=== PATIENT | female | born 1970 | race Caucasian/White ===

== ENCOUNTER → 2021-02-14 | Outpatient (CLI) | payer OTHER ==
[~2021-02-14] MED LIST: CITA20TA6 PO; CRESTOR5 MG PO; IBUP-1060 PO; LORA10TA68 PO; MULT-742 PO; OXYC20TA PO; PANT40TA77 PO; UPAD15TA PO
[2021-02-14 11:20] LABS: BASO % 0 % (0-3); EOS # 0.1 x10^3/uL (0.0-0.7); EOS % 1 % (0-3); HEMATOCRIT 35.3 % (36.0-47.0); HEMOGLOBIN 12.4 g/dL (12.0-15.5); LYMPH # 1.9 x10^3/uL (1.0-4.8); LYMPH % 28 % (24-48); MEAN CORPUSCULAR HEMOGLOBIN 33 pg (25-35); MEAN CORPUSCULAR HGB CONC 35 g/dL (31-37); MEAN CORPUSCULAR VOLUME 94 fL (79-100); MONO # 0.5 x10^3/uL (0.0-1.1); MONO % 7 % (0-9); NEUT # 4.4 x10^3/uL (1.8-7.7); NEUT % 63 % (31-73); PLATELET COUNT 314 x10^3/uL (140-400); RED BLOOD COUNT 3.74 x10^6/uL (3.50-5.40); RED CELL DISTRIBUTION WIDTH 13.2 % (11.5-14.5); WHITE BLOOD COUNT 6.9 x10^3/uL (4.0-11.0)
[2021-02-14 11:46] LABS: ALBUMIN 4.5 g/dL (3.4-5.0); ALBUMIN/GLOBULIN RATIO 1.9 (1.0-1.7); CALCIUM 8.8 mg/dL (8.5-10.1); CREATININE 0.9 mg/dL (0.6-1.0); GFR 66.5; POTASSIUM 3.6 mmol/L (3.5-5.1); TOTAL BILIRUBIN 0.4 mg/dL (0.2-1.0); TOTAL PROTEIN 6.9 g/dL (6.4-8.2)
--- NOTE | 2021-02-18 16:00 | PREOP HP ---
DATE OF SERVICE: 02/20/2021 PREOPERATIVE HISTORY AND PHYSICAL HISTORY OF PRESENT ILLNESS: The patient is a pleasant 50-year-old who is having difficulty with neck pain, right scapular pain along with bilateral shoulder pain and left arm numbness. She rates her pain 7-8/10 and says it is constant. It is worse with activity. Rest and heat help to a degree. She is taking oxycodone, ibuprofen and tizanidine. She is currently working, but has been missing work frequently because of pain. She had cervical epidural steroid injections with no benefit. She is a smoker. She has undergone 2 anterior cervical diskectomy and fusions in the past. The first was in 2006 at C6-7 and the second in 08/2019 at C5-6. CURRENT MEDICATIONS: Tizanidine, ibuprofen, Rinvoq, rosuvastatin, venlafaxine, Claritin, and oxycodone. PAST MEDICAL HISTORY: Arthritis, hepatitis, nephrolithiasis, MRSA infection, RA drug addiction. PAST SURGICAL HISTORY: Hysterectomy, ACDF C6-7, ACDF C5-6. FAMILY HISTORY: Alzheimer's disease, cancer, diabetes, heart disease, hypertension, [place]. 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 . History of substance abuse, but not from more than 8 years. Smokes 1 and a half packs per day for 35 years. Drinks alcohol 1-2 times per month. ALLERGIES: No known drug allergies. REVIEW OF SYSTEMS: A 12-point review of systems was performed and is noncontributory except that mentioned above. PHYSICAL EXAMINATION: GENERAL: Alert, pleasant, in no acute distress. HEENT: Head normocephalic, atraumatic. NECK: Acqx-ak-hcokdues tenderness with palpation of posterior cervical region, well-healed incision. SKIN: Warm and dry. MUSCULOSKELETAL: Cervical paraspinal muscle bulk is normal, restricted range of motion of the cervical spine, normal range of motion of the upper extremities bilaterally. EXTREMITIES: No clubbing, cyanosis or edema. NEUROLOGIC: Alert and oriented x 3. Strength is 5/5 in the upper and lower extremities bilaterally. Sensory is intact to light touch in the upper and lower extremities bilaterally except for diffuse decrease involving the left arm and hand, reflexes were 2-3+ and symmetric in the upper and lower extremities bilaterally, normal gait. IMAGING DATA: I reviewed her cervical MRI scan. On that study, there is moderate stenosis present at C5-6 with a focus of myelomalacia along with moderate bilateral neural foraminal narrowing. At C6-7 on the left, there is also moderate neural foraminal narrowing. At C4-5 on the left, there is moderately severe neural foraminal narrowing. ASSESSMENT AND PLAN: The patient is having increased neck and radicular pain. She does have cervical spinal stenosis of a moderate degree on her images. I spoke with her about treatment options. She has failed appropriate conservative measures. One option would be to operate posteriorly and perform a laminectomy along with bilateral neural foraminal decompressions at C5-6 on the left and C4-5 and C6-7. This would be performed with posterolateral/lateral mass instrumentation and fusion from C4-6. On the MRI, I do not see definite evidence of a solid fusion from her previous surgery. I did discuss all this with her. I also strongly encouraged her to quit smoking. She would strongly like to proceed with surgery, and she understood the rationale and the risks and expected postoperative course. We will make the arrangements. CRISTIANE DR: Ondina TID: [id number]
== END ==
LOC: SURGPAT 10:52
PROVIDERS: ATTEND Neurological Surgery
DX: Z01.818 Encounter for other preprocedural examination (principal); M54.12 Radiculopathy, cervical region; M48.02 Spinal stenosis, cervical region; M96.0 Pseudarthrosis after fusion or arthrodesis; Z98.1 Arthrodesis status
CPT/HCPCS: 36415; 80053; 85025; 87641